=== PATIENT | male | born 1960 | race Caucasian/White ===

== ENCOUNTER 2021-01-07 21:01 | Observation (INO) ==
[2021-01-07] MEDS ORDERED: SODIUM CHLORIDE 0.9% 1000ML 1,000 ML IV STA (21:46)
[2021-01-07] MEDS ORDERED: NITROGLYCERIN SL 0.4 MG/TAB TAB SL PRN (21:46)
[2021-01-07 22:16] LABS: Basophils # (auto) 0.03 K/uL (0-0.2); Basophils % (auto) 0.3 %; Eosinophils % (auto) 3.2 %; Hematocrit (blood only) 40.2 % (42-52); Hemoglobin 14.4 g/dL (14.0-18.0); Immature Granulocytes # (auto) 0.02 K/uL (0.00-0.02); Immature Granulocytes % (auto) 0.2 %; Lymphocytes # (auto) 2.12 K/uL (1.2-3.4); Lymphocytes % (auto) 22.5 %; Mean Corpuscular Hemoglobin 31.7 pg (25-34); Mean Corpuscular Hgb Conc 35.8 g/dL (32-36); Mean Corpuscular Volume 88.5 fL (80-100); Mean Platelet Volume 8.8 fL (7.4-10.4); Monocytes # (auto) 0.86 K/uL (0.11-0.59); Monocytes % (auto) 9.1 %; Neutrophils % (auto) 64.7 %; Platelet Count 311 K/uL (130-400); RDW Coefficient of Variation 13.3 % (11.5-14.5); Red Blood Count 4.54 M/uL (4.7-6.1); White Blood Count 9.43 K/uL (4.8-10.8)
[2021-01-07 22:33] LABS: BUN Creatinine Ratio 20.4 (10-20); Blood Urea Nitrogen 23 mg/dl (7-18); Carbon Dioxide 28 mmol/L (21-32); Chloride 109 mmol/L (98-107); Creatinine Clr Calc Pharmacy 69.3 ml/min; Est GFR (African American) 83.8; Est GFR (Non-African American) 72.3; Glucose 100 mg/dl (70-99); Lipase 136 U/L (73-393); Sodium 141 mmol/L (136-145)
[2021-01-07 22:37] LABS: D Dimer 190 ug/L FEU (0-500)
[2021-01-07 22:38] LABS: Troponin I < 0.015 ng/ml (0-0.045)
--- NOTE | 2021-01-08 00:35 | History & Physical Report ---
Date of Service January 08, 2021 Assessment & Plan (1) Chest pain: Jeremy Castillo is a 60y/o M with PMH significant for GERD; who presented to the ER for concern of substernal chest pain with radiation to his jaw. Patient looking for new PCP, and desiring to have follow-up with this provider following discharge. Chest pain: -chest pain with some typical features and radiation to jaw -initial troponin negative -EKG with no acute changes, no ST segment changes, no T wave inversions -continue to monitor Troponins Q6h overnight -ECHO ordered -Lipid profile in AM -A1c in AM GERD: -typically takes Prilosec once a day without control of symptoms -started on Pepcid 20mg BID Diet: Heart Healthy CODE STATUS: Full Code DVT PPX: deferred at this time (2) GERD (gastroesophageal reflux disease): History of Present Illness Chief Complaint: chest pain Primary Care Provider: NO PCP Jeremy Castillo is a 60y/o M with PMH significant for GERD; who presented to the ER for concern of substernal chest pain with radiation to his jaw. This started a couple days ago, however progressed over the last several hours, and he was having some shortness of breath. Last week, patient was working in the yard and lifted "something way too heavy" and felt a strain in his back/shoulders that continued over the this time. He continued to feel this pain, but then developed some substernal pain/heaviness. Denies lightheadedness, dizziness, palpitations, changes in vision, headaches, chest pain/shortness of breath with exertion, shortness of breath with laying flat; acknowledges that he does get a lot of reflux symptoms with burning taste in his mouth periodically when laying flat. Does not typically regularly follow with a primary care doctor and as such has n ot had blood work to monitor cholesterol or blood sugars over the last several years. No personal or family history of cardiac disease. Allergies Allergy/AdvReac Type Severity Reaction Status Date / Time No Known Allergies Allergy Unknown Unverified 01/07/21 23:52 Home Medications Medication Instructions Recorded Confirmed Type No Known Home Medications 01/07/21 01/07/21 History Past Med/Surg History Medical History (Updated 01/08/21 @ 15:00 by Ewa Ramon MD) No pertinent family history No pertinent past medical history Surgical History (Updated 01/08/21 @ 01:30 by Navin Cooper) No pertinent past surgical history Social History Smoking Status: Former smoker Hx Alcohol Use: No Hx Substance Use: No Preferred Language: Kinyarwanda Communication Ability: Effective Beliefs That Will Affect Care: None Current Living Situation: Spouse Feels Safe at Home: Yes Assistive Devices: None Review of Systems Review of Systems: All systems reviewed & are unremarkable except as noted in HPI & below Physical Exam Constitutional: WD/WN, vitals as above Eyes: PERRL, conjunctivae normal, anicteric sclerae ENMT: external ear and nose normal, oropharynx normal Respiratory: normal respiratory effort, lungs clear to auscultation Auscultation: no crackles, no rales, no rhonchi and no wheezes Cardiovascular: Rate/Rhythm: regular rate and regular rhythm Heart Sounds: no gallop, no murmur and no cardiac rub Vessels: normal peripheral pulses; no JVD Extremities: no calf tenderness Gastrointestinal (Abdomen): normal bowel sounds, soft, nontender, no hepatosplenomegaly Skin: no rashes, warm and dry Neurologic: PERRL, EOMI, accommodation nl, no face palsy, no dysarthria Psychiatric: Orientation: alert and oriented x 3 Results & Data Results & Data ([facility]) Vital Signs (Past 12 Hours) Vital Signs Temp Pulse Resp BP Pulse Ox 01/07/21 23:01 55 L 96 01/07/21 23:00 57 L 16 145/80 H 97 01/07/21 22:31 54 L 13 94 01/07/21 22:30 58 L 13 134/77 95 01/07/21 22:02 60 14 92 01/07/21 22:00 66 17 133/75 91 01/07/21 21:08 36.4 C L 69 18 171/92 H 96 Laboratory Results 01/08/21 01/08/21 01/07/21 Range/Units 00:28 00:28 22:07 WBC (4.8-10.8) K/uL RBC (4.7-6.1) M/uL Hgb (14.0-18.0) g/dL Hct (42-52) % MCV (80-100) fL MCH (25-34) pg MCHC (32-36) g/dL RDW Std Deviation (36.4-46.3) fL RDW Coeff of Edie (11.5-14.5) % Plt Count (130-400) K/uL MPV (7.4-10.4) fL Immature Gran % (Auto) % Neut % (Auto) % Lymph % (Auto) % Mayes % (Auto) % Eos % (Auto) % Baso % (Auto) % Neut # (Auto) (1.4-6.5) K/uL Lymph # (Auto) (1.2-3.4) K/uL Mayes # (Auto) (0.11-0.59) K/uL Eos # (Auto) (0-0.5) K/uL Baso # (Auto) (0-0.2) K/uL Immature Gran # (Auto) (0.00-0.02) K/uL D-Dimer (0-500) ug/L FEU Sodium 141 (136-145) mmol/L Potassium 4.0 (3.5-5.1) mmol/L Chloride 109 H (98-107) mmol/L Carbon Dioxide 28 (21-32) mmol/L Anion Gap 4.0 (3-11) BUN 23 H (7-18) mg/dl Creatinine 1.11 (0.6-1.4) mg/dl Est Cr Clr Drug Dosing 69.3 ml/min Est GFR ( Amer) 83.8 Est GFR (Non-Af Amer) 72.3 BUN/Creatinine Ratio 20.4 H (10-20) Glucose 100 H (70-99) mg/dl Calcium 9.0 (8.5-10.1) mg/dl Troponin I < 0.015 (0-0.045) ng/ml Lipase 136 (73-393) U/L COVID-19 Eval [address] CovFluRsv at [facility] SARS-CoV-2 (PCR) NEGATIVE (Negative) Influenza Type A (PCR) Negative (Neg) Influenza Type B (PCR) Negative (Neg) RSV (RT-PCR) Negative (Neg) 01/07/21 01/07/21 Range/Units 22:07 22:07 WBC 9.43 (4.8-10.8) K/uL RBC 4.54 L (4.7-6.1) M/uL Hgb 14.4 (14.0-18.0) g/dL Hct 40.2 L (42-52) % MCV 88.5 (80-100) fL MCH 31.7 (25-34) pg MCHC 35.8 (32-36) g/dL RDW Std Deviation 43.0 (36.4-46.3) fL RDW Coeff of Edie 13.3 (11.5-14.5) % Plt Count 311 (130-400) K/uL MPV 8.8 (7.4-10.4) fL Immature Gran % (Auto) 0.2 % Neut % (Auto) 64.7 % Lymph % (Auto) 22.5 % Mayes % (Auto) 9.1 % Eos % (Auto) 3.2 % Baso % (Auto) 0.3 % Neut # (Auto) 6.10 (1.4-6.5) K/uL Lymph # (Auto) 2.12 (1.2-3.4) K/uL Mayes # (Auto) 0.86 H (0.11-0.59) K/uL Eos # (Auto) 0.30 (0-0.5) K/uL Baso # (Auto) 0.03 (0-0.2) K/uL Immature Gran # (Auto) 0.02 (0.00-0.02) K/uL D-Dimer 190 (0-500) ug/L FEU Sodium (136-145) mmol/L Potassium (3.5-5.1) mmol/L Chloride (98-107) mmol/L Carbon Dioxide (21-32) mmol/L Anion Gap (3-11) BUN (7-18) mg/dl Creatinine (0.6-1.4) mg/dl Est Cr Clr Drug Dosing ml/min Est GFR ( Amer) Est GFR (Non-Af Amer) BUN/Creatinine Ratio (10-20) Glucose (70-99) mg/dl Calcium (8.5-10.1) mg/dl Troponin I (0-0.045) ng/ml Lipase (73-393) U/L COVID-19 Eval Order SARS-CoV-2 (PCR) (Negative) Influenza Type A (PCR) (Neg) Influenza Type B (PCR) (Neg) RSV (RT-PCR) (Neg) Medications Administered Current Inpatient Medications Nitroglycerin (Nitroglycerin Sl 0.4 Mg/Tab Tab) 0.4 mg SL UD PRN PRN Reason: Chest Pain Stop: 02/06/21 21:45 Last Admin: 01/07/21 22:00 Dose: 0.4 mg Documented by: Supervising Physician Co-Signing Physician Notes Attending addendum: I have physically seen this patient, have supervised the medical residents activities, and agree with the H&P unless as otherwise noted. Assessment and Plan: Chest pain- Substernal with radiation to jaw The patient will be admitted to telemetry for serial cardiac enzymes, serial EKG's, cardiac rhythm monitoring and a 2-D echocardiogram with Dopplers. Check a fasting lipid panel and hemoglobin A1c GERD- On Prilosec in the outpatient setting. In hospital Place on famotidine 20 mg p.o. twice daily Remaining orders and notations as noted Resident Activity Tracking Resident Involvement: Resident Care Provided Care Provided: Adult Hospital Medicine (1) Chest pain Chest pain type: unspecified Qualified Code(s): R07.9 - Chest pain, unspecified
[2021-01-08 01:24] LABS: Influenza A virus by PCR Negative (Neg); Influenza B virus by PCR Negative (Neg); RSV by PCR Negative (Neg); SARS CoV2 RNA(COVID-19) InHosp NEGATIVE (Negative)
--- NOTE | 2021-01-08 01:33 | Emergency Department Note ---
History of Present Illness General Chief Complaint: Chest Pain Stated Complaint: CHEST/JAW PAIN/PRESSURE Time Seen by Provider: 01/07/21 21:30 History of Present Illness Provider Complaint: chest pain Onset (ago): day(s) 4 Duration: intermittent Onset: during rest Pain Location: substernal Pain Radiation: neck and jaw/teeth Severity: mild Maximum Pain Intensity: 2 Current Pain Intensity: 2 Quality: + heaviness and + other (Pressure) Relieved By: + nothing Exacerbated By: + nothing Context: no recent illness, no recent surgery, no recent immobilization, no recent travel, no trauma/injury and no history of DVT/PE Associated symptoms: + dyspnea; no vomiting, no diaphoresis, no sense of impending doom, no syncope, no palpitations, no fever, no cough and no leg swelling Home Medications Medication Instructions Recorded Confirmed Type No Known Home Medications 01/07/21 01/07/21 History Allergies Allergy/AdvReac Type Severity Reaction Status Date / Time No Known Allergies Allergy Unknown Unverified 01/07/21 23:52 Past Med/Surg History Medical History (Updated 01/08/21 @ 01:33 by Navin Cooper) No pertinent family history No pertinent past medical history Surgical History (Updated 01/08/21 @ 01:30 by Navin Cooper) No pertinent past surgical history Social History Smoking Status: Former smoker Preferred Language: French Feels Safe at Home: Yes Review of Systems A total of 10 systems reviewed and were otherwise negative Physical Exam Vital Signs Vital Signs - 24 hr 01/07/21 21:08 01/07/21 22:00 01/07/21 22:02 Temperature 36.4 C L Temperature Source Temporal Artery Scan Pulse Rate 69 66 60 Pulse Rate from SpO2 Sensor 67 60 Respiratory Rate 18 17 14 Respiratory Depth Normal Blood Pressure 171/92 H 133/75 Blood Pressure Mean 118 94 Pulse Oximetry 96 91 92 Oxygen Delivery Method Room Air Sepsis Recent Fever Within 48 Hours No Sepsis New/Unexplained Change in Mental Status N/A Sepsis Action Taken by Nursing No Action Required 01/07/21 22:30 01/07/21 22:31 01/07/21 23:00 Temperature Temperature Source Pulse Rate 58 L 54 L 57 L Pulse Rate from SpO2 Sensor 57 L 55 L 58 L Respiratory Rate 13 13 16 Respiratory Depth Blood Pressure 134/77 145/80 H Blood Pressure Mean 96 101 Pulse Oximetry 95 94 97 Oxygen Delivery Method Sepsis Recent Fever Within 48 Hours Sepsis New/Unexplained Change in Mental Status Sepsis Action Taken by Nursing 01/07/21 23:01 01/07/21 23:30 01/08/21 00:00 Temperature Temperature Source Pulse Rate 55 L 62 65 Pulse Rate from SpO2 Sensor 56 L 63 64 Respiratory Rate 13 19 Respiratory Depth Blood Pressure 159/79 H 149/88 H Blood Pressure Mean 105 108 Pulse Oximetry 96 96 97 Oxygen Delivery Method Sepsis Recent Fever Within 48 Hours Sepsis New/Unexplained Change in Mental Status Sepsis Action Taken by Nursing 01/08/21 00:01 Temperature Temperature Source Pulse Rate 66 Pulse Rate from SpO2 Sensor 65 Respiratory Rate 17 Respiratory Depth Blood Pressure Blood Pressure Mean Pulse Oximetry 96 Oxygen Delivery Method Sepsis Recent Fever Within 48 Hours Sepsis New/Unexplained Change in Mental Status Sepsis Action Taken by Nursing Physical Exam GENERAL: He is oriented to person, place, and time. He appears well-developed and well-nourished. He does not appear distressed. HENT: Exam performed. - Head: Normocephalic and atraumatic. - Right Ear: External ear normal. No mastoid tenderness. - Left Ear: External ear normal. No mastoid tenderness. - Mouth/Throat: The oropharynx is clear and moist. No trismus in the jaw. No dental abscesses or uvula swelling. No oropharyngeal exudate or tonsillar abscesses. EYES: Conjunctivae and EOM are normal. Pupils are equal, round, and reactive to light. Right eye exhibits no discharge. Left eye exhibits no discharge. No scleral icterus. NECK: Normal range of motion. Neck supple. No JVD present. No spinous process tenderness present. No carotid bruit present. No rigidity. No tracheal deviation and normal range of motion present. No Brudzinski's sign and no Kernig's sign noted. CV: Normal rate, regular rhythm, normal heart sounds and intact distal pulses. There is no peripheral edema. Palpable radial pulses bue. PULM/CHEST: Effort normal and breath sounds normal. No respiratory distress. No stridor. He has no wheezes. He has no rales. - Chest Wall: He exhibits no tenderness. ABD: The abdomen is soft. Bowel sounds are normal. He has no distension. No mass is present. There is no tenderness. There is no rebound, no guarding, no Begum's sign and no tenderness at McBurney's point. Rovsig negative. MUSC/SKEL: Normal range of motion. There is no peripheral edema, tenderness or deformity. LYMPH: No cervical adenopathy. NEURO: He is alert and oriented to person, place, and time. He has normal strength. No cranial nerve deficit or sensory deficit. Coordination and gait normal. GCS eye subscore is 4. GCS verbal subscore is 5. GCS motor subscore is 6. Cerebellar tests wnl. SKIN: Skin is warm and dry. He is not diaphoretic. PSYCH: He has a normal mood and affect. Behavior is normal. Judgment and thought content normal. Course Course 2129: The patient was evaluated in room B5. A complete history and physical exam was performed Cardiac monitoring: An order was placed for continuous cardiac monitoring. The monitor shows a rate of 60 with sinus rhythm 2330: Vital signs stable. Labs and imaging within normal limits. [facility]. Administered Medications Nitroglycerin (Nitroglycerin Sl 0.4 Mg/Tab Tab) 0.4 mg SL UD PRN PRN Reason: Chest Pain Stop: 02/06/21 21:45 Last Admin: 01/07/21 22:00 Dose: 0.4 mg Documented by: [id number] Discontinued Medications Sodium Chloride (Nss 1000ml) 1,000 mls @ 999 mls/hr IV .Q1H1M STA Stop: 01/07/21 22:46 Last Infusion: 01/07/21 23:04 Dose: 0 mls/hr Documented by: [id number] Admin: 01/07/21 21:59 Dose: 999 mls/hr Documented by: [id number] Medical Decision Making Laboratory Data Result diagrams: 01/07/21 22:07 01/07/21 22:07 Labs: Lab Results 01/07/21 01/07/21 01/07/21 Range/Units 22:07 22:07 22:07 WBC 9.43 (4.8-10.8) K/uL RBC 4.54 L (4.7-6.1) M/uL Hgb 14.4 (14.0-18.0) g/dL Hct 40.2 L (42-52) % MCV 88.5 (80-100) fL MCH 31.7 (25-34) pg MCHC 35.8 (32-36) g/dL RDW Std Deviation 43.0 (36.4-46.3) fL RDW Coeff of Edie 13.3 (11.5-14.5) % Plt Count 311 (130-400) K/uL MPV 8.8 (7.4-10.4) fL Immature Gran % (Auto) 0.2 % Neut % (Auto) 64.7 % Lymph % (Auto) 22.5 % Duval % (Auto) 9.1 % Eos % (Auto) 3.2 % Baso % (Auto) 0.3 % Neut # (Auto) 6.10 (1.4-6.5) K/uL Lymph # (Auto) 2.12 (1.2-3.4) K/uL Duval # (Auto) 0.86 H (0.11-0.59) K/uL Eos # (Auto) 0.30 (0-0.5) K/uL Baso # (Auto) 0.03 (0-0.2) K/uL Immature Gran # (Auto) 0.02 (0.00-0.02) K/uL D-Dimer 190 (0-500) ug/L FEU Sodium 141 (136-145) mmol/L Potassium 4.0 (3.5-5.1) mmol/L Chloride 109 H (98-107) mmol/L Carbon Dioxide 28 (21-32) mmol/L Anion Gap 4.0 (3-11) BUN 23 H (7-18) mg/dl Creatinine 1.11 (0.6-1.4) mg/dl Est Cr Clr Drug Dosing 69.3 ml/min Est GFR ( Amer) 83.8 Est GFR (Non-Af Amer) 72.3 BUN/Creatinine Ratio 20.4 H (10-20) Glucose 100 H (70-99) mg/dl Calcium 9.0 (8.5-10.1) mg/dl Troponin I < 0.015 (0-0.045) ng/ml Lipase 136 (73-393) U/L COVID-19 Eval Order SARS-CoV-2 (PCR) (Negative) Influenza Type A (PCR) (Neg) Influenza Type B (PCR) (Neg) RSV (RT-PCR) (Neg) 01/08/21 01/08/21 Range/Units 00:28 00:28 WBC (4.8-10.8) K/uL RBC (4.7-6.1) M/uL Hgb (14.0-18.0) g/dL Hct (42-52) % MCV (80-100) fL MCH (25-34) pg MCHC (32-36) g/dL RDW Std Deviation (36.4-46.3) fL RDW Coeff of Edie (11.5-14.5) % Plt Count (130-400) K/uL MPV (7.4-10.4) fL Immature Gran % (Auto) % Neut % (Auto) % Lymph % (Auto) % Duval % (Auto) % Eos % (Auto) % Baso % (Auto) % Neut # (Auto) (1.4-6.5) K/uL Lymph # (Auto) (1.2-3.4) K/uL Duval # (Auto) (0.11-0.59) K/uL Eos # (Auto) (0-0.5) K/uL Baso # (Auto) (0-0.2) K/uL Immature Gran # (Auto) (0.00-0.02) K/uL D-Dimer (0-500) ug/L FEU Sodium (136-145) mmol/L Potassium (3.5-5.1) mmol/L Chloride (98-107) mmol/L Carbon Dioxide (21-32) mmol/L Anion Gap (3-11) BUN (7-18) mg/dl Creatinine (0.6-1.4) mg/dl Est Cr Clr Drug Dosing ml/min Est GFR ( Amer) Est GFR (Non-Af Amer) BUN/Creatinine Ratio (10-20) Glucose (70-99) mg/dl Calcium (8.5-10.1) mg/dl Troponin I (0-0.045) ng/ml Lipase (73-393) U/L COVID-19 Eval Order [facility]FluRsv at [facility] SARS-CoV-2 (PCR) NEGATIVE (Negative) Influenza Type A (PCR) Negative (Neg) Influenza Type B (PCR) Negative (Neg) RSV (RT-PCR) Negative (Neg) Imaging Data Chest x-ray: Radiologist's impression: Chest x-ray negative. Airway clear. No pneumothorax. No consolidation. No cardiomegaly or cephalization.. No free air under the diaphragm. No fractures of the skeletal structures. ECG Data Indication: chest pain Rate (beats per minute): 62 Rhythm: normal sinus Findings: no ST depression, no ST elevation and no prolonged QT MDM Narrative Vital signs stable. Labs and imaging within normal limits. Patient will be admitted for rule out ACS to the [facility] hospitalist team. Dr. Gonzalez notified. Impression & Plan Chest pain Discharge Plan Visit Data Chief Complaint: Chest Pain Stated Complaint: CHEST/JAW PAIN/PRESSURE ED Provider: Navin Cooper Discharge Problem: Chest pain Patient Disposition: Being Evaluated by Hospitalist Forms Stand Alone Forms: My [facility] Prescriptions Prescriptions: No Action No Known Home Medications RF: 0 Referrals Referrals: PCP,NO [Primary Care Provider] - Discharge Problem: Chest pain Qualifiers: Chest pain type: unspecified Qualified Code(s): R07.9 - Chest pain, unspecified
[2021-01-08] MEDS ORDERED: ONDANSETRON INJ 2 MG/ML 2 ML VIAL IV PRN (02:08)
[2021-01-08] MEDS ORDERED: MAGNESIUM HYDROXIDE SUSP 30 ML UDC PO PRN (02:08)
[2021-01-08] MEDS ORDERED: POLYETHYLENE (MIRALAX) 17 GM PACK PO PRN (02:08)
[2021-01-08] MEDS ORDERED: ALUMINUM/MAGNESIUM SUSP 30 ML UDC PO PRN (02:08)
[2021-01-08] MEDS ORDERED: ACETAMINOPHEN 325 MG TAB PO PRN (02:08)
[2021-01-08] MEDS ORDERED: hydrALAZINE HCL 20 MG/ML VIAL ONE (02:48)
[2021-01-08] MEDS: hydrALAZINE HCL 20 MG/ML VIAL IV STA ×2 (02:49→02:52)
[2021-01-08 04:12] LABS: Basophils # (auto) 0.01 K/uL (0-0.2); Basophils % (auto) 0.1 %; Eosinophils # (auto) 0.31 K/uL (0-0.5); Eosinophils % (auto) 3.2 %; Hematocrit (blood only) 41.8 % (42-52); Hemoglobin 14.4 g/dL (14.0-18.0); Immature Granulocytes # (auto) 0.02 K/uL (0.00-0.02); Immature Granulocytes % (auto) 0.2 %; Lymphocytes # (auto) 2.13 K/uL (1.2-3.4); Lymphocytes % (auto) 21.6 %; Mean Corpuscular Hemoglobin 30.8 pg (25-34); Mean Corpuscular Hgb Conc 34.4 g/dL (32-36); Mean Corpuscular Volume 89.5 fL (80-100); Mean Platelet Volume 8.9 fL (7.4-10.4); Monocytes # (auto) 0.82 K/uL (0.11-0.59); Monocytes % (auto) 8.3 %; Neutrophils # (auto) 6.55 K/uL (1.4-6.5); Neutrophils % (auto) 66.6 %; Platelet Count 282 K/uL (130-400); RDW Coefficient of Variation 13.1 % (11.5-14.5); RDW Standard Deviation 42.8 fL (36.4-46.3); Red Blood Count 4.67 M/uL (4.7-6.1); White Blood Count 9.84 K/uL (4.8-10.8)
[2021-01-08 04:33] LABS: Alanine Aminotransferase 33 U/L (12-78); Albumin Level 3.7 gm/dl (3.4-5.0); Aspartate Aminotransferase 12 U/L (15-37); BUN Creatinine Ratio 26.2 (10-20); Blood Urea Nitrogen 21 mg/dl (7-18); Calcium 8.5 mg/dl (8.5-10.1); Carbon Dioxide 24 mmol/L (21-32); Chloride 111 mmol/L (98-107); Creatinine Clr Calc Pharmacy 93.8 ml/min; Est GFR (African American) 112.2; Est GFR (Non-African American) 96.8; Glucose 96 mg/dl (70-99); Potassium 3.8 mmol/L (3.5-5.1); Sodium 141 mmol/L (136-145)
[2021-01-08 04:38] LABS: Albumin Globulin Ratio 1.1 (0.9-2); Alkaline Phosphatase 78 U/L (45-117); Bilirubin,Total 0.7 mg/dl (0.2-1); Globulin 3.3 gm/dl (2.5-4.0); Phosphorus 3.2 mg/dl (2.5-4.9); Troponin I < 0.015 ng/ml (0-0.045)
[2021-01-08 06:28] LABS: Estimated Average Glucose 117 mg/dl; Hemoglobin A1C 5.7 % (4.5-5.6)
--- NOTE | 2021-01-08 06:33 | XRay Report ---
XR chest 2V PA/lateral HISTORY: 60 years-old Male Chest Pain acute atypical chest pain COMPARISON: None TECHNIQUE: PA and lateral views of the chest FINDINGS: Cardiomediastinal and hilar silhouettes are within normal limits. There is no pneumothorax, pleural e ffusion, airspace consolidation or overt pulmonary edema. Bones of the chest appear grossly intact. IMPRESSION: No acute process. ACT 112: Negative or not required by law. The above report was generated using voice recognition software. It may contain grammatical, syntax o r spelling errors. Electronically signed by: Ravinder Casanova M.D. 01/08/2021 6:32 AM
[2021-01-08] MEDS ORDERED: FAMOTIDINE 20 MG TAB PO SCH (09:00)
--- NOTE | 2021-01-08 10:28 | XCELERA ---
[id number]
--- NOTE | 2021-01-08 12:57 | Electrocardiogram Report ---
Test Reason : Blood Pressure : / mmHG Vent. Rate : 062 BPM Atrial Rate : 062 BPM P-R Int : 164 ms QRS Dur : 086 ms QT Int : 394 ms P-R-T Axes : 049 041 053 degrees QTc Int : 399 ms Normal sinus rhythm Normal ECG When compared with ECG of 23-JUL-1996 16:40, QRS duration has decreased Minimal criteria for Inferior infarct are no longer Present ST no longer depressed in Inferior leads ST no longer depressed in Lateral leads T wave inversion no longer evident in Inferior leads T wave inversion no longer evident in Lateral leads QT has shortened Confirmed by aJk Harp ([id number]) on 01/08/2021 12:57:04 PM Referred By: REFERRED SELF Confirmed By:Reji Harp
--- NOTE | 2021-01-08 15:02 | Discharge Summary ---
Date of Service January 08, 2021 Admission HPI Per Admitting Provider Jeremy Castillo is a 60y/o M with PMH significant for GERD; who presented to the ER for concern of substernal chest pain with radiation to his jaw. This started a couple days ago, however progressed over the last several hours, and he was having some shortness of breath. Last week, patient was working in the yard and lifted "something way too heavy" and felt a strain in his back/shoulders that continued over the this time. He continued to feel this pain, but then developed some substernal pain/heaviness. Denies lightheadedness, dizziness, palpitations, changes in vision, headaches, chest pain/shortness of breath with exertion, shortness of breath with laying flat; acknowledges that he does get a lot of reflux symptoms with burning taste in his mouth periodically when laying flat. Does not typically regularly follow with a primary care doctor and as such has not had blood work to monitor cholesterol or blood sugars over the last several years. No personal or family history of cardiac disease. Principal Diagnosis chest pain Discharge Exam Constitutional well developed and well nourished; no acute distress Eyes PERRL, conjunctivae normal, anicteric sclerae ENMT Mouth: oral mucous membranes not dry Respiratory normal respiratory effort; no respiratory distress and no labored breathing Auscultation: lungs clear to auscultation bilaterally; no crackles, no rales, no rhonchi and no wheezes Cardiovascular Rate/Rhythm: regular rate and regular rhythm Heart Sounds: no murmur and no cardiac rub Vessels: normal peripheral pulses and radial pulses present; no JVD Extremities: no edema Gastrointestinal (Abdomen) Inspection/Auscultation: abdomen normal to inspection and normal bowel sounds; abdomen not distended Percussion/Palpation: abdomen soft; abdomen nontender, no guarding, abdomen not rigid and no hepatosplenomegaly Musculoskeletal Head/Neck/Chest: normocephalic and head atraumatic Spine: no cervical spinal tenderness, no cervical muscular tenderness, no thoracic spinal tenderness and no lumbar spinal tenderness Skin no rashes, warm and dry Neurologic CN's II-XI intact bilaterally and moves all extremities Motor/Sensory: no tremor and no sensory deficit Psychiatric Orientation: alert, oriented to person, oriented to place and oriented to time Apperance: appropriately groomed; not disheveled Affect: euthymic affect; no anxious affect and no tearful affect Discharge Data Allergies Allergy/AdvReac Type Severity Reaction Status Date / Time No Known Allergies Allergy Unknown Unverified 01/07/21 23:52 Consultations 01/07/21 23:28 ED Decision to Admit Stat 01/08/21 13:56 Consult Cardiology Routine Hospital Course (1) Chest pressure: differential includes anxiety, GERD, musculoskeletal lipase was normal at 136 troponins negative x 3 sets LFTs normal asked cardiology to set up an outpatient stress test stable for discharge home (2) GERD (gastroesophageal reflux disease): can use over the counter antacids Total Time Total Time Spent Total Time Spent (In Minutes): 35 Total Time Includes: Examination of the Patient, Discharge Planning, Medication Reconciliation and Communication With Other Providers Discharge Plan Discharge Items Patient Disposition: Home - Self-Care Reason For Visit: CHEST PAIN Discharge Diagnosis: chest pain Activity: Resume your previous activity Non-emergency contact: Primary Care Provider Call non-emergency contact if: you have any medication questions Follow-up/Referrals: PCP,NO [Primary Care Provider] - Diet: Regular Addtl Attending Provider Instructions: You presented to emergency room for chest pressure, ongoing for 4 days Your symptoms are not due to heart attack You should undergo a stress test as an outpatient Your symptoms could be related to anxiety or heartburn Pending Studies at Discharge: No Stand-Alone Forms: My [employer], Smoking Cessation Medications and DC Order Prescriptions: No Action No Known Home Medications RF: 0 Discharge Orders: Discharge Order (Routine); Ordered 01/08/21 Ordered By: Ewa Ramon Admission Data Admit Date/Time: 01/08/21 00:32 Attending Provider: Ewa Ramon Admit Provider: Bud Salinas Primary Care Provider: PCP,NO Other Providers: Eddy Swan ; Ryan Beltran Coding Level of Care Code 76716 OBS Care - Discharge Diagnoses Chest pressure R07.89 GERD (gastroesophageal reflux disease) K21.9
--- NOTE | 2021-01-09 02:56 | Billing Data ---
Date of Service January 09, 2021 Coding Level of Care Code 74058 OBS Care - Level 3
== END 2021-01-08 16:17 | disposition home or self-care (01) ==
LOC: 2N 21:01 → ED 21:01 → SUATTDRO 01-08 00:32 → 2N 01-08 01:38